=== PATIENT | male | born 1980 | race African-American/Black ===

== ENCOUNTER 2016-07-11 15:29 | Emergency (ER) | payer OTHER ==
[2016-07-11] MEDS ORDERED: Albuterol/Ipratropium NEB.SOL* Albuterol 2.5 MG/Ipratropium 0.5 MG 3 ML INH ONE ×3 (19:28→20:54)
[2016-07-11] MEDS ORDERED: predniSONE TAB* 20 MG PO ONE (19:28)
[2016-07-11 19:53] LABS: Hematocrit 43 % (42-52); Hemoglobin 14.8 g/dl (14.0-18.0); Mean Corpuscular HGB Conc 34 g/dl (31-36); Mean Corpuscular Hemoglobin 35 pg (27-31); Mean Corpuscular Volume 101 fL (80-94); Mean Platelet Volume 9 um3 (7.4-10.4); Red Blood Count 4.27 10^6/ul (4.0-5.4); Red Cell Distribution Width 13 % (10.5-15); White Blood Count 5.2 10^3/ul (3.5-10.8)
[2016-07-11 20:06] LABS: Albumin 4.7 g/dL (3.2-5.2); BUN/Creatinine Ratio 16.3 (8-20); Calcium 9.5 mg/dL (8.6-10.3); EGFR African American 121.1 (>60); EGFR Non-African American 94.2 (>60); Potassium 3.6 mmol/L (3.5-5.0); Total Bilirubin 1.3 mg/dL (0.2-1.0); Total Protein 7.7 g/dL (6.4-8.9)
--- NOTE | 2016-07-11 20:27 | RAD ---
HISTORY: Shortness of breath COMPARISONS: December 24, 2015 VIEWS: 2: Frontal dual-energy and lateral views of the chest. FINDINGS: CARDIOMEDIASTINAL SILHOUETTE: The cardiomediastinal silhouette is normal. MARÍA: The maría are normal. PLEURA: The costophrenic angles are sharp. No pleural abnormalities are noted. LUNG PARENCHYMA: The lungs are clear. ABDOMEN: The upper abdomen is clear. There is no subphrenic gas. BONES AND SOFT TISSUES: No bone or soft tissue abnormalities are noted. OTHER: None. IMPRESSION: NO ACTIVE CARDIOPULMONARY DISEASE.
[2016-07-11] MEDS ORDERED: Albuterol/Ipratropium NEB.SOL* Albuterol 2.5 MG/Ipratropium 0.5 MG 3 ML ONE (20:52)
[2016-07-11] MEDS ORDERED: Albuterol HFA INHALER* 8 gm MDI INH ONE (21:53)
--- NOTE | 2016-07-11 21:56 | ED ---
Zander Simon Alok, scribed for Petros Rodriguez on 07/11/16 at 1938 . Shortness of Breath - HPI Summary HPI Summary: 35 y/o male presents to the ED with SOB since yesterday, worsening today. Pt also has mild wheezing. Pt denies cough, CP, or abd pain. PMHx includes asthma and pt states he ran out of his medications. - History of Current Complaint Chief Complaint: EDShortnessOfBreath Time Seen by Provider: 07/11/16 19:14 Hx Obtained From: Patient Onset/Duration: Lasting Days, Still Present, Worse Since - Today Timing: Constant Current Severity: Moderate Dyspnea At: Rest Aggrevating Factors: Nothing Alleviating Factors: Nothing Associated Signs & Symptoms: Wheezing - Allergy/Home Medications Allergies/Adverse Reactions: Allergies Allergy/AdvReac Type Severity Reaction Status Date / Time No Known Allergies Allergy Verified 07/11/16 15:36 PMH/Surg Hx/FS Hx/Imm Hx Endocrine/Hematology History: Denies: Hx Anticoagulant Therapy, Hx Diabetes Cardiovascular History: Denies: Hx Hypertension, Hx Pacemaker/ICD Respiratory History: Reports: Hx Asthma, Other Respiratory Problems/Disorders Sensory History: Denies: Hx Hearing Aid Psychiatric History: Denies: Hx Panic Disorder - Surgical History Surgery Procedure, Year, and Place: RT KNEE ARTHROSCOPIC. LT KNEE CAP DISLOCATED - Immunization History Date of Tetanus Vaccine: unknown Date of Influenza Vaccine: UTD Infectious Disease History: No Infectious Disease History: Denies: Traveled Outside the [place] in Last 30 Days - Family History Known Family History: Positive: Diabetes, Other - colon CA, cousin has asthma - Social History Occupation: Employed Full-time Alcohol Use: Occasionally Alcohol Amount: 1 beer every other day Hx Substance Use: No Substance Use Type: Reports: None Hx Tobacco Use: No Smoking Status (MU): Never Smoked Tobacco Review of Systems Negative: Fever Negative: Chest Pain Positive: Shortness Of Breath. Negative: Cough Negative: Abdominal Pain All Other Systems Reviewed And Are Negative: Yes Physical Exam Triage Information Reviewed: Yes Vital Signs On Initial Exam: Initial Vitals Temp Pulse Resp BP Pulse Ox 97.1 F 70 17 153/73 98 07/11/16 15:33 07/11/16 15:33 07/11/16 15:33 07/11/16 15:33 07/11/16 15:33 Vital Signs Reviewed: Yes Appearance: Positive: Well-Appearing, No Pain Distress Skin: Positive: Warm, Skin Color Reflects Adequate Perfusion, Dry Head/Face: Positive: Normal Head/Face Inspection Eyes: Positive: EOMI, GISELLE ENT: Positive: Normal ENT inspection Neck: Positive: Supple, Nontender Respiratory/Lung Sounds: Positive: Wheezes - Mild, Other - Poor air entry Cardiovascular: Positive: RRR, Pulses are Symmetrical in both Upper and Lower Extremities Abdomen Description: Positive: Nontender, Soft Bowel Sounds: Positive: Present Musculoskeletal: Positive: Normal, Strength/ROM Intact Neurological: Positive: Normal, Sensory/Motor Intact, Alert, Oriented to Person Place, Time - [place] Coma Scale Coma Scale Total: 15 Diagnostics - Vital Signs Vital Signs Temp Pulse Resp BP Pulse Ox 07/11/16 18:58 98.5 F 80 20 109/79 94 07/11/16 17:41 98.5 F 71 16 151/84 96 07/11/16 15:33 97.1 F 70 17 153/73 98 - Laboratory Result Diagrams: 07/11/16 19:44 07/11/16 19:44 Lab Statement: Any lab studies that have been ordered have been reviewed, and results considered in the medical decision making process. - Radiology CXR Xray Interpretation: Positive (See Comments) - IMPRESSION: NO ACTIVE CARDIOPULMONARY DISEASE. Radiology Interpretation Completed By: Radiologist - EKG 1539 Cardiac Rate: NL - 70 bpm EKG Rhythm: Sinus Rhythm EKG Interpretation: No acute changes Course/Dx - Course Assessment/Plan: Pt feels fine and will be discharged with albuterol and medrol with recommendation to fu with PCP in 3 days - Diagnoses Provider Diagnoses: Exacerbation of asthma Discharge - Discharge Plan Condition: Stable Disposition: HOME Prescriptions: Methylprednisolone [Medrol Dosepak 4 MG*] 0 mg PO .SEE SARWAT INSTRUCTION #1 tab Patient Education Materials: Asthma (ED) Referrals: No Primary Care Phys,NOPCP [Primary Care Provider] - [facility] [place] [facility] [Outside] Additional Instructions: Please follow up with your primary care provider in the next three days The documentation as recorded by the Zander pham Alok accurately reflects the service I personally performed and the decisions made by , Petros Rodriguez.
[2016-07-11] MEDS ORDERED: Albuterol HFA INHALER* 8 gm MDI INH SCH (22:00)
[2016-07-11 22:01] VITALS: BP 137/87
== END 2016-07-11 22:00 | disposition home or self-care (01) ==
LOC: SUPCPDRO 15:29 → ED 15:29
DX: R06.02 Shortness of breath (principal); R06.2 Wheezing; J45.901 Unspecified asthma with (acute) exacerbation
CPT/HCPCS: 36415; 71020; 80053; 83880; 84484; 85025; 93005; 94640; 99283; A9270-GY; J7512

== ENCOUNTER 2016-08-21 19:37 | Emergency (ER) | payer OTHER ==
[2016-08-21] MEDS ORDERED: methylPREDNISolone 125 MG* 2 ML VIAL IM ONE (19:49)
[2016-08-21] MEDS ORDERED: Albuterol/Ipratropium NEB.SOL* Albuterol 2.5 MG/Ipratropium 0.5 MG 3 ML INH ONE (19:49)
--- NOTE | 2016-08-21 19:55 | UC ---
Respiratory Complaint HPI - HPI Summary HPI Summary: Pt has asthma but no current PCP. Having lots of difficulty breathing in the last 1-2 days. Just used albuterol neb an hour or two ago but it didn't help much. Feels like his stomach is filled with air. - History of Current Complaint Chief Complaint: UCRespiratory Stated Complaint: DIFFICULTY BREATHING Time Seen by Provider: 08/21/16 19:45 Hx Obtained From: Patient Onset/Duration: Gradual Onset, Lasting Days Timing: Constant Severity Initially: Mild Severity Currently: Severe Character: Cough: Nonproductive Aggravating Factors: Exertion, Deep Breaths, Recumbent Position Alleviating Factors: Bronchodilator, Upright Position Associated Signs And Symptoms: Positive: Dyspnea, Wheezing. Negative: Fever, Chills, Nasal Congestion - Allergies/Home Medications Allergies/Adverse Reactions: Allergies Allergy/AdvReac Type Severity Reaction Status Date / Time No Known Allergies Allergy Verified 08/21/16 19:42 PMH/Surg Hx/FS Hx/Imm Hx Respiratory History: Asthma Other History Of: Negative For: Anticoagulant Therapy - Surgical History Surgical History: Yes Surgery Procedure, Year, and Place: RT KNEE ARTHROSCOPIC. LT KNEE CAP DISLOCATED - Family History Known Family History: Positive: None, Diabetes, Other - colon CA, cousin has asthma - Social History Lives: With Family Alcohol Use: Occasionally Alcohol Amount: 1 beer every other day Substance Use Type: None Smoking Status (MU): Never Smoked Tobacco - Immunization History Most Recent Influenza Vaccination: not utd Most Recent Tetanus Shot: unsure Most Recent Pneumonia Vaccination: none Review of Systems Constitutional: Negative Skin: Negative Eyes: Negative ENT: Negative Respiratory: Shortness Of Breath, Cough Cardiovascular: Negative Gastrointestinal: Negative Genitourinary: Negative Motor: Negative Neurovascular: Negative Musculoskeletal: Negative Neurological: Negative Psychological: Negative All Other Systems Reviewed And Are Negative: Yes Physical Exam Triage Information Reviewed: Yes Appearance: Well-Nourished, Ill-Appearing - respiratory distress Vital Signs: Initial Vital Signs Temp 98.8 F 08/21/16 19:39 Pulse 87 08/21/16 19:39 Resp 16 08/21/16 19:39 BP 142/83 08/21/16 19:39 Pulse Ox 94 08/21/16 19:39 Vital Signs Reviewed: Yes Eye Exam: Normal Eyes: Positive: Conjunctiva Clear ENT Exam: Normal ENT: Positive: Normal ENT inspection, Hearing grossly normal, Pharynx normal, TMs normal Dental Exam: Normal Neck exam: Normal Neck: Positive: Supple, Nontender, No Lymphadenopathy Respiratory: Positive: Respiratory distress - moderate, unable to finish full sentences, anxious, unable to sit down, Decreased breath sounds, Accessory muscle use, Wheezing, Expiration Cardiovascular: Positive: RRR, No Murmur Musculoskeletal Exam: Normal Neurological Exam: Normal Neurological: Positive: Alert Psychological Exam: Normal Skin Exam: Normal UC Diagnostic Evaluation - Laboratory O2 Sat by Pulse Oximetry: 94 Re-Evaluation - Re-Evaluation First Eval Re-Evaluation Time: 20:24 Change: Unchanged - states nebulized medicine not helping Respiratory Course/Dx - Differential Dx/Diagnosis Provider Diagnoses: bronchospasm. respiratory distress - Physician Notification/Consults Discussed Patient Care With: Joseph Teague Time Discussed With Above Provider: 20:27 Discharge - Discharge Plan Condition: Stable Disposition: TRANS HIGHER LVL OF CARE FAC
[2016-08-21] MEDS ORDERED: EPINEPHrine AMP 1 MG/ML IM ONE (20:24)
[2016-08-21 20:48] VITALS: BP 154/106
== END 2016-08-21 20:44 | disposition short-term general hospital (02) ==
LOC: UCEAST 19:37
DX: J98.01 Acute bronchospasm (principal); R06.00 Dyspnea, unspecified
CPT/HCPCS: 96372; 99213; A9270-GY; G0463; J0171; J2930

== ENCOUNTER 2016-08-21 20:55 | Emergency (ER) | payer OTHER ==
[2016-08-21] MEDS ORDERED: Magnesium Sulfate 2 GM IV* 2 GM/50 ML BAG IVPB ONE (21:30)
[2016-08-21] MEDS ORDERED: Albuterol/Ipratropium NEB.SOL* Albuterol 2.5 MG/Ipratropium 0.5 MG 3 ML INH ONE (21:30)
[2016-08-22] MEDS ORDERED: Albuterol HFA INHALER* 8 gm MDI INH ONE (00:22)
[2016-08-22 00:30] VITALS: BP 145/84
--- NOTE | 2016-08-22 00:48 | ED ---
Melida Simon Salem, scribed for Joseph Teague MD on 08/21/16 at 2127 . Shortness of Breath - HPI Summary HPI Summary: Patient is a 35 y/o M who presents to the ED with SOB from the urgent care. Pt received 125mg of Solu-Medrol [employer]. He reports chest tightness, wheezing, cough productive for green sputum, and diaphoresis. Pt has a hx of asthma, but denies ever being admitted for it. He states he used a nebulizer at home with little alleviation. - History of Current Complaint Chief Complaint: EDShortnessOfBreath Time Seen by Provider: 08/21/16 21:08 Hx Obtained From: Patient Onset/Duration: Gradual Onset, Lasting Hours, Still Present Current Severity: Moderate Aggrevating Factors: Nothing Alleviating Factors: Nothing Associated Signs & Symptoms: Cough (Productive), Wheezing, Diaphoresis - Allergy/Home Medications Allergies/Adverse Reactions: Allergies Allergy/AdvReac Type Severity Reaction Status Date / Time No Known Allergies Allergy Verified 08/21/16 21:16 PMH/Surg Hx/FS Hx/Imm Hx Endocrine/Hematology History: Denies: Hx Anticoagulant Therapy, Hx Diabetes Cardiovascular History: Denies: Hx Hypertension, Hx Pacemaker/ICD Respiratory History: Reports: Hx Asthma, Other Respiratory Problems/Disorders Sensory History: Denies: Hx Hearing Aid Psychiatric History: Denies: Hx Panic Disorder - Surgical History Surgery Procedure, Year, and Place: RT KNEE ARTHROSCOPIC. LT KNEE CAP DISLOCATED - Immunization History Date of Tetanus Vaccine: unknown Date of Influenza Vaccine: UTD Infectious Disease History: No Infectious Disease History: Denies: Traveled Outside the [place] in Last 30 Days - Family History Known Family History: Positive: Diabetes, Other - colon CA, cousin has asthma - Social History Alcohol Use: Occasionally Alcohol Amount: 1 beer every other day Hx Substance Use: No Substance Use Type: Reports: None Hx Tobacco Use: No Smoking Status (MU): Never Smoked Tobacco Review of Systems Positive: Skin Diaphoresis. Negative: Fever, Chills Negative: Erythema Negative: Sore Throat Positive: Chest Pain - Chest tightness. Positive: Cough, Other - Wheezing. . Negative: Shortness Of Breath Negative: Abdominal Pain, Vomiting, Nausea Negative: dysuria, hematuria Negative: Myalgia, Edema Negative: Rash Neurological: Other - No dizziness. All Other Systems Reviewed And Are Negative: Yes Physical Exam - Summary Physical Exam Summary: Constitutional: Well-developed, Well-nourished, Alert. (-) Distressed Skin: Warm, Dry HENT: Normocephalic; Atraumatic Eyes: Conjunctiva normal Neck: Musculoskeletal ROM normal neck. (-) JVD, (-) Stridor, (-) Tracheal deviation Cardio: Rhythm regular, rate normal, Heart sounds normal; Intact distal pulses; The pedal pulses are 2+ and symmetric. Radial pulses are 2+ and symmetric. (-) Murmur Pulmonary/Chest wall: Effort normal. (-) Respiratory distress, Wheezing, (-) Rales Abd: Soft, (-) Tenderness, (-) Distension, (-) Guarding, (-) Rebound Musculoskeletal: (-) Edema Lymph: (-) Cervical adenopathy Neuro: Alert, Oriented x3 Psych: Mood and affect Normal Triage Information Reviewed: Yes Vital Signs On Initial Exam: Initial Vitals Temp Pulse Resp BP Pulse Ox 98 F 75 18 134/80 94 08/21/16 21:13 08/21/16 21:13 08/21/16 21:13 08/21/16 21:13 08/21/16 21:13 Vital Signs Reviewed: Yes - [place] Coma Scale Coma Scale Total: 15 Diagnostics - Vital Signs Vital Signs Temp Pulse Resp BP Pulse Ox 08/21/16 21:13 98 F 75 18 134/80 94 - Laboratory Lab Statement: Any lab studies that have been ordered have been reviewed, and results considered in the medical decision making process. Re-Evaluation - Re-Evaluation First Eval Re-Evaluation Time: 23:52 Comment: Wheezes resolved. He is feeling better. Second Eval Re-Evaluation Time: 00:21 Comment: Pt is ambulating and doing well. Course/Dx - Course Course Of Treatment: 35 y/o M who presents with SOB. He reports chest tightness , wheezing, cough productive for green sputum, and diaphoresis. Pt received Duoneb and Magnesium Sulfate in the ED course. Pt will be DC'd to Rx and referral. - Diagnoses Provider Diagnoses: Asthma exacerbation Discharge - Discharge Plan Condition: Stable Disposition: HOME Prescriptions: Albuterol 2.5MG/3ML (0.083%)* [Ventolin 2.5 MG/3 ML NEB.PANCHO*] 2.5 mg INH Q6H # 60 neb.pancho Albuterol HFA INHALER* [Ventolin HFA Inhaler*] 1 - 2 puff INH Q4H PRN #1 mdi PRN Reason: Cough predniSONE TAB* [Deltasone TAB*] 40 mg PO DAILY #5 tab Patient Education Materials: Asthma (ED) Referrals: [facility] [place] [facility] [Outside] Additional Instructions: Please follow up with [facility] [place]. RETURN TO THE EMERGENCY DEPARTMENT FOR CHANGING OR WORSENING SYMPTOMS. The documentation as recorded by the Melida pham Salem accurately reflects the service I personally performed and the decisions made by , Joseph Teague MD.
== END 2016-08-22 00:30 | disposition home or self-care (01) ==
LOC: ED 20:55
DX: J45.901 Unspecified asthma with (acute) exacerbation (principal); R05 Cough
CPT/HCPCS: 94640; 96374; 99283; A9270-GY

== ENCOUNTER 2017-05-29 17:11 | Emergency (ER) | payer OTHER ==
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
[2017-05-29 20:12] VITALS: BP 136/63
[2017-05-29 20:28] LABS: ABS Basophils 0 10^3/ul (0-0.2); ABS Eosinophils 0.2 10^3/ul (0-0.6); ABS Lymphocytes 1.3 10^3/ul (1.0-4.8); ABS Monocytes 0.3 10^3/ul (0-0.8); ABS Neutrophils 4.1 10^3/ul (1.5-7.7); ABS Nucleated RBC 0 10^3/ul; Hematocrit 38 % (42-52); Hemoglobin 12.9 g/dl (14.0-18.0); Lymphocyte % 21.9 % (25-47); Mean Corpuscular HGB Conc 34 g/dl (31-36); Mean Corpuscular Hemoglobin 35 pg (27-31); Mean Corpuscular Volume 103 fL (80-94); Mean Platelet Volume 8 um3 (7.4-10.4); Nucleated Red Blood Cells % 0; Platelet Count 151 10^3/ul (150-450); Red Blood Count 3.68 10^6/ul (4.0-5.4); Red Cell Distribution Width 13 % (10.5-15); White Blood Count 5.9 10^3/ul (3.5-10.8)
[2017-05-29 20:35] LABS: EGFR Non-African American 98.6 (>60)
== END 2017-05-29 20:11 | disposition home or self-care (01) ==
LOC: ED 17:11
DX: Z77.21 Contact with and (suspected) exposure to potentially hazardous body fluids (principal); Z11.4 Encounter for screening for human immunodeficiency virus [HIV]; J45.909 Unspecified asthma, uncomplicated
CPT/HCPCS: 36415; 80053; 85025; 86703; 86706; 86803; 87340; 99281

== ENCOUNTER 2017-08-01 14:29 | Emergency (ER) | payer OTHER ==
[2017-08-01] MEDS ORDERED: Albuterol/Ipratropium NEB.SOL* Albuterol 2.5 MG/Ipratropium 0.5 MG 3 ML INH ONE (14:34)
[2017-08-01] MEDS ORDERED: predniSONE TAB* 20 MG PO ONE (14:37)
--- NOTE | 2017-08-01 14:37 | ED ---
Respiratory - HPI Summary HPI Summary: 36-year-old male presents with shortness breath for the past couple hours. He states he ran out of his inhaler. He states he may have a cold has been increased sinus congestion triggering his asthma. He does not take anything for his asthma besides his inhaler. He is not on a maintenance dose of anything. He denies any chest pain. Denies any cough. He denies abdominal pain. there is no nausea or vomiting. No sore throat. Admits to nasal discharge. He has past medical history of asthma. He is nonsmoker. - History of Current Complaint Chief Complaint: EDAsthma Stated Complaint: ASTHMA Time Seen by Provider: 08/01/17 14:34 Pain Intensity: 3 - Allergy/Home Medications Allergies/Adverse Reactions: Allergies Allergy/AdvReac Type Severity Reaction Status Date / Time No Known Allergies Allergy Verified 05/29/17 17:14 PMH/Surg Hx/FS Hx/Imm Hx Endocrine/Hematology History: Denies: Hx Anticoagulant Therapy, Hx Diabetes Cardiovascular History: Denies: Hx Hypertension, Hx Pacemaker/ICD Respiratory History: Reports: Hx Asthma, Other Respiratory Problems/Disorders Denies: Hx Chronic Obstructive Pulmonary Disease (COPD) Sensory History: Denies: Hx Hearing Aid Psychiatric History: Denies: Hx Panic Disorder - Surgical History Surgery Procedure, Year, and Place: RT KNEE ARTHROSCOPIC. LT KNEE CAP DISLOCATED - Immunization History Date of Tetanus Vaccine: UTD per patient Date of Influenza Vaccine: UTD Infectious Disease History: No Infectious Disease History: Denies: Traveled Outside the [place] in Last 30 Days - Family History Known Family History: Positive: None, Diabetes, Other - colon CA, cousin has asthma - Social History Alcohol Use: Occasionally Alcohol Amount: 1 beer every other day Hx Substance Use: No Substance Use Type: Reports: None Hx Tobacco Use: No Smoking Status (MU): Never Smoked Tobacco Review of Systems Negative: Fever Negative: Chest Pain Positive: Shortness Of Breath. Negative: Cough Negative: Abdominal Pain All Other Systems Reviewed And Are Negative: Yes Physical Exam Triage Information Reviewed: Yes Vital Signs On Initial Exam: Initial Vitals Temp Pulse Resp BP Pulse Ox 99.0 F 68 20 125/76 97 08/01/17 14:30 08/01/17 14:30 08/01/17 14:30 08/01/17 14:30 08/01/17 14:30 Vital Signs Reviewed: Yes Appearance: Positive: Well-Appearing Skin: Positive: Warm, Dry Head/Face: Positive: Normal Head/Face Inspection Eyes: Positive: Normal, EOMI, GISELLE, Conjunctiva Clear ENT: Positive: Normal ENT inspection, Pharynx normal, TMs normal Respiratory/Lung Sounds: Positive: Breath Sounds Present, Wheezes Cardiovascular: Positive: Normal, RRR Abdomen Description: Positive: Nontender, Soft Bowel Sounds: Positive: Present Musculoskeletal: Positive: Normal Neurological: Positive: Normal Psychiatric: Positive: Normal Diagnostics - Vital Signs Vital Signs Temp Pulse Resp BP Pulse Ox 08/01/17 14:30 99.0 F 68 20 125/76 97 - Laboratory Lab Statement: Any lab studies that have been ordered have been reviewed, and results considered in the medical decision making process. Re-Evaluation - Re-Evaluation First Eval Re-Evaluation Time: 15:29 Change: Improved Comment: feeling better after nebulizer Disposition - Course Course Of Treatment: 36-year-old male presents with shortness breath for the past couple hours. He states he ran out of his inhaler. He states he may have a cold has been increased sinus congestion triggering his asthma. He does not take anything for his asthma besides his inhaler. He is not on a maintenance dose of anything. He denies any chest pain. Denies any cough. He denies abdominal pain. there is no nausea or vomiting. No sore throat. Admits to nasal discharge. He has past medical history of asthma. He is nonsmoker. On exam mild wheezing present. No respiratory distress. Will give DuoNeb and steroid. We'll prescribe inhaler and steroid for home. Told to follow-up with primary as may need a maintenance dose has been seen here a few times for shortness breath. Patient understands agrees plan. - Differential Dx - Cardiopulmonary Differential Diagnoses - Cardiopulmonary: Asthma, Bronchitis, Lower Resp Infection - Diagnoses Provider Diagnoses: Asthma exacerbation Discharge - Sign-Out/Discharge Documenting (check all that apply): Discharge/Admit/Transfer - Discharge Plan Condition: Good Disposition: HOME Prescriptions: Albuterol 2.5MG/3ML (0.083%)* [Ventolin 2.5 MG/3 ML NEB.PANCHO*] 2.5 mg INH Q6H # 60 neb.pancho Albuterol HFA INHALER* [Ventolin HFA Inhaler*] 1 - 2 puff INH Q4H PRN #1 i PRN Reason: Cough predniSONE TAB* [Deltasone TAB*] 40 mg PO DAILY #4 tab Patient Education Materials: Asthma (ED) Referrals: [facility] [Outside] Additional Instructions: Use inhaler up to two puffs every 4 hours for cough and wheezing Take steroid once a day for 4 more days starting tomorrow Take Tylenol or ibuprofen for pain every 6 hours Return to ED if develop severe shortness of breath, worsening chest pain, or any new or worsening symptoms - Billing Disposition and Condition Condition: GOOD Disposition: HOME
[2017-08-01] MEDS ORDERED: methylPREDNISolone 125 MG* 2 ML VIAL IM ONE (15:24)
[2017-08-01] MEDS ORDERED: predniSONE TAB* 20 MG ONE (15:43)
[2017-08-01 16:08] VITALS: BP 142/85
== END 2017-08-01 16:07 | disposition home or self-care (01) ==
LOC: ED 14:29
DX: J45.901 Unspecified asthma with (acute) exacerbation (principal)
CPT/HCPCS: 96372; 99282; A9270-GY; J2930; J7512

== ENCOUNTER 2017-10-16 17:14 | Emergency (ER) | payer OTHER ==
[2017-10-16] MEDS ORDERED: Albuterol/Ipratropium NEB.SOL* Albuterol 2.5 MG/Ipratropium 0.5 MG 3 ML INH ONE (19:39)
[2017-10-16] MEDS ORDERED: predniSONE TAB* 20 MG PO ONE (19:41)
[2017-10-16] MEDS: Albuterol 2.5 MG/3 ML NEB.SOL* (0.083%) INH SCH ×2 (20:14→20:16)
--- NOTE | 2017-10-16 20:57 | ED ---
Shortness of Breath - HPI Summary HPI Summary: This is scribe Janak Zhong documenting for attending Nik Pringle M.D. Patient is a 37 y/o M w/ c/o SOB. He reports experiencing SOB for the past few days but experienced an exacerbation today. He also notes congestion and a productive cough. Patient has Hx of asthma and has an inhaler and nebulizer. On triage, it is reported patient took x2 nebs at home with machine and his puffer without relief. Also on triage, pain is denied and nothing is noted to aggravate /alleviate Sx. Home medications and allergies reviewed. I, Dr. Pringle, personally performed the services described in this documentation as scribed in my presence and it is both accurate and complete. - History of Current Complaint Chief Complaint: EDShortnessOfBreath Time Seen by Provider: 10/16/17 19:21 Hx Obtained From: Patient Onset/Duration: Lasting Days - onset a few days ago, Worse Since - exacerbation today Timing: Constant Current Severity: None - pain is denied Aggrevating Factors: Nothing Alleviating Factors: Nothing Associated Signs & Symptoms: Cough (Productive) - Allergy/Home Medications Allergies/Adverse Reactions: Allergies Allergy/AdvReac Type Severity Reaction Status Date / Time No Known Allergies Allergy Verified 05/29/17 17:14 Home Medications: Home Medications Albuterol 2.5MG/3ML (0.083%)* [Ventolin 2.5 MG/3 ML NEB.PANCHO*] 2.5 mg INH Q6H PRN 10/16/17 [History Confirmed 10/16/17] PMH/Surg Hx/FS Hx/Imm Hx Endocrine/Hematology History: Denies: Hx Anticoagulant Therapy, Hx Diabetes Cardiovascular History: Denies: Hx Hypertension, Hx Pacemaker/ICD Respiratory History: Reports: Hx Asthma, Other Respiratory Problems/Disorders Denies: Hx Chronic Obstructive Pulmonary Disease (COPD) Sensory History: Denies: Hx Hearing Aid Psychiatric History: Denies: Hx Panic Disorder - Surgical History Surgery Procedure, Year, and Place: RT KNEE ARTHROSCOPIC. LT KNEE CAP DISLOCATED - Immunization History Date of Tetanus Vaccine: UTD per patient Date of Influenza Vaccine: UTD Infectious Disease History: No Infectious Disease History: Denies: Traveled Outside the [place] in Last 30 Days - Family History Known Family History: Positive: Diabetes, Other - colon CA, cousin has asthma - Social History Alcohol Use: Occasionally Alcohol Amount: 1 beer every other day Hx Substance Use: No Substance Use Type: Reports: None Hx Tobacco Use: No Smoking Status (MU): Never Smoked Tobacco Review of Systems Negative: Fever - on vitals, temperature is 98.7 F Positive: Shortness Of Breath, Cough - productive , Other - congestion All Other Systems Reviewed And Are Negative: Yes Physical Exam - Summary Physical Exam Summary: VITAL SIGNS: Reviewed. GENERAL: Patient is a well-developed and nourished male who is lying comfortable in the stretcher. Patient is not in any acute respiratory distress. HEAD AND FACE: No signs of trauma. No ecchymosis, hematomas or skull depressions. No sinus tenderness. EYES: PERRLA, EOMI x 2, No injected conjunctiva, no nystagmus. EARS: Hearing grossly intact. Ear canals and tympanic membranes are within normal limits. MOUTH: Oropharynx within normal limits. NECK: Supple, trachea is midline, no adenopathy, no JVD, no carotid bruit, no c- spine tenderness, neck with full ROM. CHEST: Symmetric, no tenderness at palpation LUNGS: Bilateral expiratory and inspiratory wheezing is present. No crackles noted, no other abnormal findings. CVS: Regular rate and rhythm, S1 and S2 present, no murmurs or gallops appreciated. ABDOMEN: Soft, non-tender. No signs of distention. No rebound no guarding, and no masses palpated. Bowel sounds are normal. EXTREMITIES: FROM in all major joints, no edema, no cyanosis or clubbing. NEURO: Alert and oriented x 3. No acute neurological deficits. Speech is normal and follows commands. SKIN: Dry and warm Triage Information Reviewed: Yes Vital Signs On Initial Exam: Initial Vitals Temp Pulse Resp BP Pulse Ox 98.7 F 56 18 134/77 96 10/16/17 17:16 10/16/17 17:16 10/16/17 17:16 10/16/17 17:16 10/16/17 17:16 Vital Signs Reviewed: Yes Diagnostics - Vital Signs Vital Signs Temp Pulse Resp BP Pulse Ox 10/16/17 20:23 53 11 127/74 100 10/16/17 20:00 49 16 97 10/16/17 19:53 48 14 111/85 99 10/16/17 19:39 46 20 100 10/16/17 19:23 50 16 132/87 98 08/07/18 19:18 48 17 98 10/16/17 17:16 98.7 F 56 18 134/77 96 - Laboratory Lab Statement: Any lab studies that have been ordered have been reviewed, and results considered in the medical decision making process. Re-Evaluation - Re-Evaluation First Eval Re-Evaluation Time: 21:26 Comment: Patient reports feeling better and is wheezing less. He will be discharged to home and follow up with PCP in 1-2 days. Patient is agreeable with plan. Course/Dx - Course Assessment/Plan: Patient is a 37 y/o M w/ c/o SOB. He reports experiencing SOB for the past few days but experienced an exacerbation today. He also notes congestion and a productive cough. Patient has Hx of asthma and has an inhaler and nebulizer. On triage, it is reported patient took x2 nebs at home with machine and his puffer without relief. Also on triage, pain is denied and nothing is noted to aggravate/alleviate Sx. Physical exam revealed bilateral expiratory and inspiratory wheezing is present with no other abnormal findings. During ED course, patient was given Albuterol, 2.5 mg INH Q20M PATRICIA, albuterol/ Ipratropium 1 neb INH ED ONCE, Prednisone, 60 mg PO ONCE. At 2126, patient reports feeling better and is wheezing less. He was discharged to home with diagnosis of asthma exacerbation. He reports that he has sufficient albuterol solution and nebulizer at home. He was prescribed Albuterol HFA INHALER* [ Ventolin HFA Inhaler*] 2 puff INH Q4H PRN #1 mdi, PRN Reason: Sob/Wheezing and predniSONE TAB* [Deltasone TAB*] 50 mg PO DAILY #5 tab. He was instructed to follow up with PCP in 1-2 days and to return to ED for any changing or worsening symptoms. Patient is agreeable with the follow up plan and had all questions answered to satisfaction. - Diagnoses Provider Diagnoses: Asthma exacerbation Discharge - Sign-Out/Discharge Documenting (check all that apply): Patient Departure - discharge - Discharge Plan Condition: Stable Disposition: HOME Prescriptions: Albuterol HFA INHALER* [Ventolin HFA Inhaler*] 2 puff INH Q4H PRN #1 mdi PRN Reason: Sob/Wheezing predniSONE TAB* [Deltasone TAB*] 50 mg PO DAILY #5 tab Patient Education Materials: Asthma (ED) Referrals: [facility] [Outside] - 2 Days Additional Instructions: Follow up with primary care physician in 1-2 days. Return to ED for any changing or worsening symptoms.
[2017-10-16 21:48] VITALS: BP 127/78
== END 2017-10-16 21:45 | disposition home or self-care (01) ==
LOC: ED 17:14
DX: J45.901 Unspecified asthma with (acute) exacerbation (principal)
CPT/HCPCS: 99283; A9270-GY; J7512